=== PATIENT | male | born 1995 | race Caucasian/White ===

== ENCOUNTER 2019-08-20 23:59 | Emergency (ER) | payer OTHER ==
[2019-08-21 00:07] VITALS: BP 116/87
--- NOTE | 2019-08-21 00:14 | ED ---
Laceration/Wound HPI - HPI Summary HPI Summary: 24-year-old right-hand dominant male presents to the emergency department today after putting his hand through a glass window this evening and sustaining a laceration to the thenar eminence of his right hand. Bleeding is controlled at this time. Patient states she is up-to-date with tetanus immunization. Patient reports 2 out of 10 pain to the right hand. Patient is neurovascularly intact. Patient denies cleaning the wound prior to arrival or removing foreign bodies. Patient is otherwise well and denies fever, chest pain, abdominal pain , pain with urination, rash, nausea, vomiting, diarrhea. Surgical history and family history is noncontributory. - History of Current Complaint Stated Complaint: R HAND PAIN PER PT Time Seen by Provider: 08/21/19 00:07 Hx Obtained From: Patient Mechanism of Injury: Sharp/Blunt Trauma Onset/Duration: Sudden Onset Aggravating: Movement Onset Severity: Mild Current Severity: Mild Pain Intensity: 1 Pain Scale Used: 0-10 Numeric Associated Signs & Symptoms: Pain - Allergy/Home Medications Allergies/Adverse Reactions: Allergies Allergy/AdvReac Type Severity Reaction Status Date / Time Tree Nuts Allergy Unknown Verified 08/21/19 00:04 Reaction Details potatoes Allergy Unknown Uncoded 08/21/19 00:04 Reaction Details Home Medications: Home Medications Dextroamphetamine/Amphetamine [Adderall Xr 20 mg Capsule] 25 mg PO DAILY PRN [History Confirmed 08/21/19] PMH/Surg Hx/FS Hx/Imm Hx Infectious Disease History: No Infectious Disease History: Denies: Traveled Outside the [place] in Last 30 Days Review of Systems Constitutional: Negative Eyes: Negative ENT: Negative Positive: Palpitations Respiratory: Negative Gastrointestinal: Negative Genitourinary: Negative Musculoskeletal: Negative Skin: Negative Neurological/Mental Status: Negative Psychological: Normal All Other Systems Reviewed And Are Negative: Yes - he was x-rayed Physical Exam - Summary Physical Exam Summary: There is a 2 cm laceration to the thenar eminence of the right hand. Bleeding is controlled. Patient is neurovascularly intact and has full range of motion of the right hand. Patient has full motor function of the radial, ulnar, median nerve. Triage Information Reviewed: Yes Vital Signs On Initial Exam: Initial Vitals Temp Pulse Resp BP Pulse Ox 97 F 94 18 116/87 95 08/21/19 00:04 08/21/19 00:04 08/21/19 00:04 08/21/19 00:04 08/21/19 00:04 Vital Signs Reviewed: Yes Appearance: Positive: Well-Appearing, No Pain Distress, Well-Nourished Skin: Positive: Warm, Skin Color Reflects Adequate Perfusion Eyes: Positive: EOMI, SAPPHIRE ENT: Positive: Hearing grossly normal Respiratory/Lung Sounds: Positive: Clear to Auscultation, Breath Sounds Present Cardiovascular: Positive: RRR, S1, S2 Musculoskeletal: Positive: Strength/ROM Intact Neurological: Positive: Sensory/Motor Intact, Alert, Oriented to Person Place, Time, Normal Gait, Facial Symmetry, Speech Normal Psychiatric: Positive: Normal, Affect/Mood Appropriate AVPU Assessment: Alert Procedures - Sedation Patient Received Moderate/Deep Sedation with Procedure: No - Laceration/Wound Repair 1 Location: upper extremity Description: Linear Length, Depth and Shape: 2 cm in length by 2 mm in depth. Betadine Prep?: No Irrigated w/ Saline (ccs): 200 Laceration/Wound Explored: clean, no foreign body removed Closure: Skin Adhesive, SteriStrips Layer Closure?: No Sterile Dressing Applied?: Yes Diagnostics - Vital Signs Vital Signs Temp Pulse Resp BP Pulse Ox 08/21/19 00:04 97 F 94 18 116/87 95 - Laboratory Lab Statement: Any lab studies that have been ordered have been reviewed, and results considered in the medical decision making process. Laceration Repair Course/Dx - Course Course Of Treatment: Patient was evaluated in the emergency department today for laceration of the right hand. X-ray was obtained to rule out possible retained foreign bodies which showed no evidence of retained foreign body. Laceration appeared to be superficial. Laceration was irrigated using approximately 200 cc of normal saline. Wound was approximated using Dermabond skin glue and Steri-Strips. Sterile dressing was applied over wound. Patient was discharged with outpatient follow-up. - Differential Dx Differental Diagnoses: Foreign Body, Laceration, Puncture Wound - Clinical Impression Provider Diagnoses: Laceration of right hand Discharge ED - Sign-Out/Discharge Documenting (check all that apply): Patient Departure - Discharge Plan Condition: Stable Disposition: HOME Patient Education Materials: Laceration (ED), Skin Adhesive Care (ED) Referrals: No Primary Care Phys,NOPCP [Primary Care Provider] - Additional Instructions: Your laceration was repaired using skin glue and Steri-Strips in the emergency department today. Please keep dressing applied to your wound dry and in place for 12 hours then you may remove this and change your dressing daily. Please try to keep your wound as dry as possible for 24 hours. Please refrain from using your right hand for strenuous activity to allow the tissues to heal. It will take approximately 8-10 days for wound healing. [facility]. Please return to this emergency Department immediately if you develop any new or worsening symptoms. - Billing Disposition and Condition Condition: STABLE Disposition: Home - Attestation Statements Provider Attestation: I was available for consult. This patient was seen by the [facility]. The patient was not presented to, seen by, or examined by me. Henrik Stoll MD
== END 2019-08-21 00:57 | disposition home or self-care (01) ==
LOC: ED 23:59
DX: S61.411A Laceration without foreign body of right hand, initial encounter (principal); W25.XXXA Contact with sharp glass, initial encounter; Y93.9 Activity, unspecified; Y92.9 Unspecified place or not applicable
CPT/HCPCS: 99282